=== PATIENT | male | born 1965 | race Hispanic/Latino ===

== ENCOUNTER 2019-06-27 15:59 | Inpatient (IN) | payer OTHER ==
[~2019-06-27] VITALS: Ht 167.6 cm; Wt 68.8 kg
[2019-06-27] MEDS ORDERED: KETOROLAC TROMETHAMINE 60 MG/2 ML VIAL ONE (16:25)
[2019-06-27 18:12] LABS: BASOPHILS % (AUTO) 0.4 % (0.0-5.0); EOSINOPHILS % (AUTO) 1.1 % (0.0-8.0); HEMATOCRIT 40.5 % (42-54); LYMPHOCYTES % (AUTO) 6.2 % (21.0-51.0); MEAN CORPUSCULAR HEMOGLOBIN 33.7 pg (27.0-33.0); MEAN CORPUSCULAR HGB CONC 34.1 g/dL (32.0-36.0); MEAN CORPUSCULAR VOLUME 98.9 fL (79-99); MONOCYTES % (AUTO) 3.8 % (3.0-13.0); NEUTROPHILS % (AUTO) 88.5 % (40.0-77.0); PLATELET COUNT (AUTO) 341 K/uL (130-400); RED CELL DISTRIBUTION WIDTH 14.5 % (11.0-15.5); WHITE BLOOD COUNT (AUTO) 15.1 K/uL (4.8-10.8)
[2019-06-27] MEDS ORDERED: MORPHINE SULFATE 2 MG/ML 1ML SYG ONE (18:19)
[2019-06-27] MEDS ORDERED: ONDANSETRON HCL 4 MG/2 ML VIAL ONE (18:19)
[2019-06-27 18:20] LABS: CREATININE 0.8 mg/dL (0.5-1.5); POTASSIUM 3.6 mmol/L (3.5-5.1)
[2019-06-27 18:24] LABS: INR 0.94 (0.85-1.15); PROTHROMBIN TIME 9.9 SEC (9.6-11.6)
[2019-06-27 18:25] LABS: ALBUMIN 3.7 g/dL (3.5-5.0); BILIRUBIN,DIRECT 0.1 mg/dL (0.0-0.3); BILIRUBIN,TOTAL 0.5 mg/dL (0.2-1.0); TOTAL PROTEIN, SERUM 6.7 g/dL (6.0-8.3)
[2019-06-27 20:35] VITALS: BP 123/70
[2019-06-27] MEDS ORDERED: MORPHINE SULFATE 2 MG/ML 1ML SYG IVP PRN (23:30)
[2019-06-27 23:34] VITALS: BP 119/79
[2019-06-27] MEDS: MORPHINE SULFATE 4 MG/1ML SYG IV PRN (23:56)
[2019-06-28 04:00] VITALS: BP 126/74
[2019-06-28 05:05] LABS: HEMATOCRIT 40.8 % (42-54); MEAN CORPUSCULAR HEMOGLOBIN 33.4 pg (27.0-33.0); PLATELET COUNT (AUTO) 326 K/uL (130-400); RED BLOOD CELL COUNT(AUTO) 4.04 MIL/uL (4.50-6.20); RED CELL DISTRIBUTION WIDTH 14.1 % (11.0-15.5); WHITE BLOOD COUNT (AUTO) 12.3 K/uL (4.8-10.8)
[2019-06-28 05:13] LABS: CREATININE 0.9 mg/dL (0.5-1.5); POTASSIUM 3.8 mmol/L (3.5-5.1)
[2019-06-28] MEDS: MORPHINE SULFATE 4 MG/1ML SYG IV PRN (06:40)
[2019-06-28 08:00] VITALS: BP 128/74
[2019-06-28] MEDS: ENOXAPARIN SODIUM 40 MG/0.4 ML SYRINGE SQ SCH (09:00)
--- NOTE | 2019-06-28 09:08 | NUR ---
ORTHO SPOKE WITH DR. FOFANA REGARDING CONSULT WITH THIS PATIENT. HE STATED THAT HE WAS AWARE OF THE CONSULT AND WOULD BE COMING IN TO SEE PATIENT THIS MORNING.
[2019-06-28 11:12] VITALS: BP 125/75
--- NOTE | 2019-06-28 13:13 | NUR ---
ORTHO DR. FOFANA IN TO SEE PATIENT. NEW ORDERS RECEIVED.
[2019-06-28] MEDS: FAMOTIDINE 20MG TAB 20 MG TAB PO SCH ×2 (13:28→20:38)
[2019-06-28] MEDS: HYDROCODONE/ACETAMINOPHEN 5/325 MG TAB PO SCH ×3 (13:28→22:09)
[2019-06-28] MEDS ORDERED: FOLIC ACID 1 MG TABLET PO SCH (13:30)
[2019-06-28] MEDS ORDERED: LORAZEPAM 2 MG/ML 1 ML VIAL IVP PRN (13:30)
[2019-06-28] MEDS ORDERED: ACETAMINOPHEN 325 MG TAB PO PRN (13:30)
[2019-06-28 16:00] VITALS: BP 120/71
--- NOTE | 2019-06-28 18:35 | NUR ---
D/C PLAN CM spoke to pt regarding d/c planning. Pt lives with father. States he has a friend that can assist with transportation. States he has a wk at home that he can use if needed. States he has insurance and has provided information to billing department. CM provided community resources. Plan to home. CM to f/u. Addendum: 06/28/19 at 1838 by HAYLEY PARRA CM Amended: Links added.
[2019-06-28 19:32] VITALS: BP 121/58
[2019-06-29] VITALS (7 sets, daily range): BP systolic 111–134; BP diastolic 54–80
[2019-06-29] MEDS: HYDROCODONE/ACETAMINOPHEN 5/325 MG TAB PO SCH ×6 (02:09→21:17)
[2019-06-29 05:50] LABS: BASOPHILS % (AUTO) 0.7 % (0.0-5.0); EOSINOPHILS % (AUTO) 1.4 % (0.0-8.0); HEMATOCRIT 40.4 % (42-54); LYMPHOCYTES % (AUTO) 16.4 % (21.0-51.0); MEAN CORPUSCULAR HEMOGLOBIN 33.8 pg (27.0-33.0); MEAN CORPUSCULAR HGB CONC 34.1 g/dL (32.0-36.0); MEAN CORPUSCULAR VOLUME 99.2 fL (79-99); MONOCYTES % (AUTO) 7.9 % (3.0-13.0); NEUTROPHILS % (AUTO) 73.6 % (40.0-77.0); PLATELET COUNT (AUTO) 340 K/uL (130-400); RED BLOOD CELL COUNT(AUTO) 4.07 MIL/uL (4.50-6.20); WHITE BLOOD COUNT (AUTO) 9.4 K/uL (4.8-10.8)
[2019-06-29 05:56] LABS: CREATININE 0.9 mg/dL (0.5-1.5); POTASSIUM 3.9 mmol/L (3.5-5.1)
[2019-06-29] MEDS: FAMOTIDINE 20MG TAB 20 MG TAB PO SCH ×3 (09:00→21:15)
[2019-06-29] MEDS: ENOXAPARIN SODIUM 40 MG/0.4 ML SYRINGE SQ SCH (09:00)
[2019-06-29] MEDS: FOLIC ACID 1 MG TABLET PO SCH (09:00)
--- NOTE | 2019-06-29 10:22 | NUR ---
dr. gusman paged , for pt since pt is on the or board but no orders yet no answers
[2019-06-29] MEDS: SODIUM CHLORIDE 0.9% 1000ML 1,000 ML IV SCH (12:45)
--- NOTE | 2019-06-29 15:55 | NUR ---
[facility] TRANSFERRED PATIENT TO [facility] PT DENIES SOB OR CHEST PAIN
[2019-06-30] VITALS (25 sets, daily range): BP systolic 116–143; BP diastolic 61–84
[2019-06-30] MEDS: HYDROCODONE/ACETAMINOPHEN 5/325 MG TAB PO SCH ×5 (01:45→20:14)
[2019-06-30] MEDS: SODIUM CHLORIDE 0.9% 1000ML 1,000 ML IV SCH ×2 (01:48→20:15)
[2019-06-30 04:36] LABS: EOSINOPHILS % (AUTO) 1.6 % (0.0-8.0); HEMATOCRIT 40.5 % (42-54); LYMPHOCYTES % (AUTO) 17.6 % (21.0-51.0); MEAN CORPUSCULAR HEMOGLOBIN 33.7 pg (27.0-33.0); MEAN CORPUSCULAR HGB CONC 33.7 g/dL (32.0-36.0); MONOCYTES % (AUTO) 8.9 % (3.0-13.0); NEUTROPHILS % (AUTO) 70.9 % (40.0-77.0); PLATELET COUNT (AUTO) 305 K/uL (130-400); RED BLOOD CELL COUNT(AUTO) 4.05 MIL/uL (4.50-6.20); RED CELL DISTRIBUTION WIDTH 14.1 % (11.0-15.5); WHITE BLOOD COUNT (AUTO) 10.7 K/uL (4.8-10.8)
[2019-06-30 04:53] LABS: POTASSIUM 4.2 mmol/L (3.5-5.1)
[2019-06-30] MEDS: FOLIC ACID 1 MG TABLET PO SCH (09:00)
[2019-06-30] MEDS: FAMOTIDINE 20MG TAB 20 MG TAB PO SCH ×3 (09:00→20:14)
[2019-06-30] MEDS: ENOXAPARIN SODIUM 40 MG/0.4 ML SYRINGE SQ SCH (09:00)
[2019-06-30] MEDS ORDERED: LACTATED RINGERS 1000ML 1,000 ML IV ONE (10:50)
[2019-06-30] MEDS ORDERED: MEPERIDINE-PF 25 MG/ML SYG ONE ×3 (11:50→16:44)
[2019-06-30] MEDS ORDERED: PROPOFOL 10 MG/ML 20ML VIAL IV ONE (12:00)
[2019-06-30] MEDS ORDERED: MIDAZOLAM HCL 1 MG/ML 2ML VIAL ONE (12:00)
[2019-06-30] MEDS ORDERED: LIDOCAINE HCL MPF 1% 5ML VIAL ONE (12:01)
[2019-06-30] MEDS ORDERED: DEXAMETHASONE SOD PHOSPHATE 10MG/ML 1ML VIAL ONE ×2 (12:01→15:17)
[2019-06-30] MEDS ORDERED: FENTANYL CITRATE PF 50 MCG/1 ML 5ML AMP IV ONE (12:01)
[2019-06-30] MEDS ORDERED: ONDANSETRON HCL 4 MG/2 ML VIAL ONE ×2 (12:01→16:46)
[2019-06-30] MEDS ORDERED: ROPIVACAINE 0.5% 5MG/ML 30ML IJ ONE (14:09)
[2019-06-30] MEDS ORDERED: CLINDAMYCIN 600 MG/D5% WATER 50 ML IV ONE (14:24)
[2019-06-30] MEDS ORDERED: LACTULOSE 20 GM/30 ML UDCUP PO PRN (14:30)
[2019-06-30] MEDS ORDERED: ROCURONIUM 10MG/1ML SYR 10 MG/ML ML ONE ×2 (14:30→16:34)
[2019-06-30] MEDS ORDERED: EPHEDRINE SULFATE 50 MG/ML AMPULE ONE (14:53)
[2019-06-30] MEDS ORDERED: GLYCOPYRROLATE 1 MG/5 ML SYRINGE ONE (15:16)
[2019-06-30] MEDS ORDERED: NEOSTIGMINE 5MG/5ML SYR IV ONE (15:18)
--- NOTE | 2019-06-30 16:00 | NUR ---
[facility] ACCEPTED
--- NOTE | 2019-06-30 16:01 | NUR ---
disregard cm note- wrong pt
[2019-06-30] MEDS ORDERED: POTASSIUM CHLORIDE 10% ELIXIR 20 MEQ/15 ML UDCUP PO PRN (16:15)
[2019-06-30] MEDS ORDERED: FERROUS FUMARATE 324 MG TABLET PO PRN (16:15)
[2019-06-30] MEDS ORDERED: CALCIUM CARBONATE 500 MG TABLET PO PRN (16:15)
[2019-06-30] MEDS ORDERED: DIPHENHYDRAMINE HCL 25 MG CAPSULE PO PRN (16:15)
[2019-06-30] MEDS ORDERED: DiphenhydrAMINE HCL 50 MG/ML VIAL IVP PRN (16:15)
[2019-06-30] MEDS ORDERED: POTASSIUM CHLORIDE 20MEQ/100ML 100 ML IV PRN (16:15)
[2019-06-30] MEDS ORDERED: POTASSIUM CHLORIDE 20 MEQ ERTAB PO PRN (16:15)
[2019-06-30] MEDS ORDERED: FENTANYL CITRATE PF 50 MCG/1 ML 2ML VIAL ONE (16:18)
[2019-06-30] MEDS ORDERED: METOCLOPRAMIDE 10 MG/2 ML VIAL ONE (16:46)
--- NOTE | 2019-06-30 17:25 | NUR ---
SPOKE Josh VILLARREAL, TOLD HER I CHANGED THE TIME FOR THE ABD XRAY SINCE PT WAS IN SURGERY BUT PATIENT WAS OUT, AND NPO AND THEY COULD DO THE XRAY Addendum: 07/01/19 at 1101 by ANKITA MATHEWS RN CM ERROR WRONG PT
[2019-06-30] MEDS: CLINDAMYCIN 600 MG/D5% WATER 50 ML IV SCH (23:12)
[2019-07-01] MEDS: HYDROCODONE/ACETAMINOPHEN 5/325 MG TAB PO SCH ×6 (00:05→19:00)
[2019-07-01] MEDS: SODIUM CHLORIDE 0.9% 1000ML 1,000 ML IV SCH (02:09)
[2019-07-01 03:30] VITALS: BP 138/78
[2019-07-01 05:20] LABS: BASOPHILS % (AUTO) 0.4 % (0.0-5.0); HEMATOCRIT 39.4 % (42-54); LYMPHOCYTES % (AUTO) 7.7 % (21.0-51.0); MEAN CORPUSCULAR HEMOGLOBIN 32.9 pg (27.0-33.0); MEAN CORPUSCULAR VOLUME 99.7 fL (79-99); NEUTROPHILS % (AUTO) 84.9 % (40.0-77.0); PLATELET COUNT (AUTO) 362 K/uL (130-400); RED BLOOD CELL COUNT(AUTO) 3.96 MIL/uL (4.50-6.20); RED CELL DISTRIBUTION WIDTH 14.1 % (11.0-15.5); WHITE BLOOD COUNT (AUTO) 13.6 K/uL (4.8-10.8)
[2019-07-01 05:25] LABS: CREATININE 0.8 mg/dL (0.5-1.5); POTASSIUM 4.2 mmol/L (3.5-5.1)
[2019-07-01] MEDS ORDERED: CLINDAMYCIN 600 MG/D5% WATER 50 ML IV ONE (06:29)
[2019-07-01] MEDS: CLINDAMYCIN 600 MG/D5% WATER 50 ML IV SCH (06:31)
[2019-07-01 08:08] VITALS: BP 126/77
[2019-07-01] MEDS ORDERED: POLYETHYLENE GLYCOL 3350 17 GM POWD.PACK PO SCH (09:00)
[2019-07-01] MEDS: FAMOTIDINE 20MG TAB 20 MG TAB PO SCH (09:34)
[2019-07-01] MEDS: FOLIC ACID 1 MG TABLET PO SCH (09:35)
[2019-07-01] MEDS: ENOXAPARIN SODIUM 40 MG/0.4 ML SYRINGE SQ SCH (09:36)
[2019-07-01 11:48] VITALS: BP 130/75
[2019-07-01] MEDS ORDERED: PSYLLIUM SEED 1 EACH PACKET PO SCH (12:00)
--- NOTE | 2019-07-01 14:00 | NUR ---
DISCUSSED DC MARK Moreno CM- CONFIRMED WITH PTX- PATIENT HAS OWN WALKER, IS DOING WELL WITH THERAPY. Addendum: 07/01/19 at 1900 by ANKITA MATHEWS RN CM Amended: Links added.
[2019-07-01 16:34] VITALS: BP 131/77
--- NOTE | 2019-07-01 19:15 | NUR ---
DISCHARGE DISCHARGE TEACHING DONE WITH PATIENT USING TEACHBACK METHOD, VERBALIZED UNDERSTANDING. NO NOTED SOB OR DISTRESS. NEW MEDICATION ADMINISTRATION TEACHING DONE WITH PATIENT USING TEACHBACK METHOD, VERBALIZED UNDERSTANDING. PT AWARE OF NEED TO ATTEND DR. ZULETA OFFICE APPOINTMENT. IV REMOVED, CATH TIP INTACT. DRESSING TO LEFT KNEE CHANGED, INCISION AND CELINA ARE DRY AND INTACT. INCISION DRESSING TEACHING DONE WITH PATIENT, VERBALIZED UNDERSTANDING. PATIENT HAS OWN WALKER. IV REMOVED, CATH TIP INTACT. PENDING TO BE TRANSFERRED OUT VIA PRIVATE VEHICLE.
--- NOTE | 2019-07-01 19:30 | NUR ---
LATE DISCHARGE DUE TO PENDING DR. MARTIN TO ROUND AND GIVE DISCHARGE ORDERS.
[2019-07-02] MEDS ORDERED: BISACODYL 5 MG TABLET.DR PO PRN (16:15)
[2019-07-03] MEDS ORDERED: BISACODYL 10 MG SUPP.RECT RC PRN (16:15)
== END 2019-07-01 19:15 | disposition home or self-care (01) | DRG 494 ==
LOC: EDH 15:59 → EDHIP 16:00 → OBSVTOIN 16:00 → 4BH 20:18
PROVIDERS: ADMIT Family Medicine; ATTEND Family Medicine
PROC: 0QSH04Z Reposition Left Tibia with Internal Fixation Device, Open Approach (ICD-10-PCS; principal; 2019-06-30 15:00)
PROC: 0QSH04Z Reposition Left Tibia with Internal Fixation Device, Open Approach (ICD-10-PCS; 2019-06-30 15:00)
PROC: 3E0T3BZ Introduction of Anesthetic Agent into Peripheral Nerves and Plexi, Percutaneous Approach (ICD-10-PCS; 2019-06-30 15:00)
DX: S82.142A Displaced bicondylar fracture of left tibia, initial encounter for closed fracture (principal); D72.829 Elevated white blood cell count, unspecified; R22.1 Localized swelling, mass and lump, neck; F17.210 Nicotine dependence, cigarettes, uncomplicated; Z96.641 Presence of right artificial hip joint; S82.202A Unspecified fracture of shaft of left tibia, initial encounter for closed fracture; V98.8XXA Other specified transport accidents, initial encounter; Z82.49 Family history of ischemic heart disease and other diseases of the circulatory system; Z83.3 Family history of diabetes mellitus; Z72.89 Other problems related to lifestyle; Z84.1 Family history of disorders of kidney and ureter; Y93.55 Activity, bike riding; Y92.89 Other specified places as the place of occurrence of the external cause; Y99.8 Other external cause status; Z88.0 Allergy status to penicillin
CPT/HCPCS: 36415; 71045; 73562; 73590; 73700; 74018; 80048; 80076; 82550; 84484; 85025; 85027; 85610; 85730; 93005; 97039; G0378; J1100; J1650; J1885; J2175; J2250; J2270; J2405; J2704; J2710; J2765; J2795; J3010; J3490; J7120